=== PATIENT | female | born 1985 | race Caucasian/White ===

== ENCOUNTER → 2022-10-24 16:12 | Outpatient (CLI) | payer BC, SELFPAY ==
--- NOTE | ~2022-10-24 | XR_ITS ---
AP and lateral views of the left hip Clinical history: Pain Findings: No acute fracture or dislocation is seen. Osseous alignment is anatomic. Left hip joint and left SI joint are preserved. Soft tissues are unremarkable. Impression: No significant abnormality is seen. Reviewed, dictated and finalized at [facility]. E MASON Impression: No significant abnormality is seen.
== END ==
PROVIDERS: PCP Nurse Practitioner Family; Visit Provider Nurse Practitioner Family
DX: M25.552 Pain in left hip (principal)
CPT/HCPCS: 73502

== ENCOUNTER 2024-03-20 15:21 | Outpatient (CLI) | payer BC, SELFPAY ==
--- NOTE | ~2024-03-20 | MR_ITS ---
EXAMINATION: MR lumbar spine wo con DATE: 03/20/2024 16:31 INDICATION: Low back pain, unspecified. TECHNIQUE: Magnetic resonance imaging (MRI) of the lumbar spine was performed without intravenous con trast. Sequences included sagittal T2-weighted FSE, sagittal T2-weighted FS FSE, sagittal T1-weighted FSE, and axial T2-weighted FSE. COMPARISON: Lumbar spine radiographs 01/29/2024 FINDINGS: There is 5 degrees dextrocurvature of the lumbar spine. There is a transitional segment at lumbosacral junction that is designated S1. Vertebral body heights are normal. There is mildly decrea sed disc height at L4-L5 and severely decreased disc height at L5-S1. The distal spinal cord signal i ntensity is normal. The conus medullaris is at L1-L2. The following disc levels are specifically disc ussed: L1-L2: The disc does not extend beyond the endplate margin. There is moderate right and mild left fac et joint osteoarthritis. There is no neural foraminal stenosis. There is no central canal stenosis. L2-L3: The disc does not extend beyond the endplate margin. There is moderate bilateral facet joint o steoarthritis. There is no neural foraminal stenosis. There is no central canal stenosis. L3-L4: The disc does not extend beyond the endplate margin. There is severe bilateral facet joint ost eoarthritis. There is no neural foraminal stenosis. There is no central canal stenosis. L4-L5: The disc is bulging. There is severe bilateral facet joint osteoarthritis. There is mild bilat eral neural foraminal stenosis. There is mild central canal stenosis. L5-S1: The disc is bulging and has an annular fissure. There is severe bilateral facet joint osteoart hritis. There is mild bilateral neural foraminal stenosis. There is mild central canal stenosis. IMPRESSION: 1. Severe lower lumbar spondylosis. Reviewed, dictated and finalized at location E.
== END 2024-03-20 15:22 | disposition home or self-care (01) ==
LOC: ANHIMG 15:23
PROVIDERS: PCP Nurse Practitioner Family; Visit Provider Nurse Practitioner Family
DX: M54.50 Low back pain, unspecified (principal)
CPT/HCPCS: 72148

== ENCOUNTER 2024-06-30 12:01 | Outpatient (CLI) | payer BC, SELFPAY ==
--- NOTE | ~2024-06-30 | XR_ITS ---
Lumbosacral Spine: AP and lateral views Clinical History: Pain Findings: The normal lordotic curve is maintained. No fracture seen. There is 1 cm anterolisthesis of L3 over L4. There is severe degenerative disc narrowing at L4-L5 and L5-S1. There is moderate to adv anced facet arthropathy throughout the lumbar spine. The sacroiliac joints are normally outlined. Impression: 1 cm anterolisthesis of L3 over L4. Moderate to advanced degenerative spondylosis, especially at the lower lumbar spine, as above. Reviewed, dictated and finalized at location M. Impression: 1 cm anterolisthesis of L3 over L4. Moderate to advanced degenerative spondylosis, especially at the lower lumbar s pine, as above.
== END 2024-06-30 12:02 ==
LOC: MICIMG 12:04
PROVIDERS: PCP Nurse Practitioner Family; Visit Provider Neurological Surgery
DX: M47.816 Spondylosis without myelopathy or radiculopathy, lumbar region (principal)
CPT/HCPCS: 72110